=== PATIENT | female | born 1965 | race American Indian/Alaskan Native ===

== ENCOUNTER 2016-10-17 13:05 | Emergency (ER) | payer SELFPAY ==
[2016-10-17 14:24] LABS: Basophils % (Auto) 0.7 % (0.0-1.8); Eosinophils % (Auto) 0.7 % (0.0-4.3); Hematocrit 41.3 % (30.3-42.9); Hemoglobin 13.5 gm/dl (10.1-14.3); Mean Corpuscular HGB Conc 33 % (30-34); Mean Corpuscular Volume 79 fl (79-97); Platelet Count 285 K/mm3 (140-440); Red Blood Count 5.21 M/mm3 (3.65-5.03); Red Cell Distribution Width 15.7 % (13.2-15.2); White Blood Count 7.7 K/mm3 (4.5-11.0)
[2016-10-17 14:32] LABS: Anion Gap 17 mmol/L; BUN/Creatinine Ratio 15.71; Blood Urea Nitrogen 11 mg/dL (7-17); Calcium 9.7 mg/dL (8.4-10.2); Carbon Dioxide 30 mmol/L (22-30); Chloride 94.6 mmol/L (98-107); Glucose 104 mg/dL (65-100); Potassium 3.9 mmol/L (3.6-5.0); Sodium 138 mmol/L (137-145)
--- NOTE | 2016-10-17 14:38 | Emergency Department Report ---
Entered by DEVIN CRAMER, acting as scribe for BROCK DIAZ PA. Chief Complaint: Neuro Symptoms/Deficit Stated Complaint: TINGLING ON FACE, LEFT SIDE WEAKNESS Time Seen by Provider: 10/17/16 13:54 - HPI History of Present Illness: Pt c/o facial tingling/pressure and left-sided numbness that began this morning. Notes that 3 days ago her head felt tight with associated confusion and dizziness. Notes she had a similar episode yesterday at 17:00, but states the episode was worse 3 days ago. Denies headache. Denies any pain. Denies vision changes PMHx of HTN. Compliant with HCTZ 25 mg medication. - ROS Review of Systems: All systems are negative unless stated in the HPI above. - Exam Vital Signs: Vital Signs 10/17/16 13:14 Temperature 98.3 F Pulse Rate 85 Respiratory 16 Rate Blood Pressure 149/103 O2 Sat by Pulse 100 Oximetry Physical Exam: GENERAL: Patient is alert and oriented x 3. No apparent distress, normal gait, atraumatic. LUNGS: Symmetrical with respiration. No wheezing, rales or crackles, CTAB. HEART: Regular rate and rhythm with normal S1/S2 present. No murmurs, rubs, or gallops. NEUROLOGIC: No focal deficit., Cranial nerves II - XII are grossly intact. No loss of sensation. No facial droop. Finger to nose normal. No nystagmus. Heel to mccarthy normal. Negative Romberg. MSE screening note: Focused history and physical exam performed. Due to findings the following was ordered: ED Medical Decision Making - Medical Decision Making Patient seen by provider in triage area. Lab work will be done on patient and sent in. Patient will be seen by another provider in the main ED. ED Disposition for MSE Condition: Stable This documentation as recorded by the scribe,DEVIN CRAMER,accurately reflects the service I personally performed and the decisions made by me, BROCK DIAZ PA.
[2016-10-17 15:03] LABS: Mean Corpuscular Hemoglobin 26 pg (28-32)
--- NOTE | 2016-10-17 22:00 | Cat Scan Report ---
FINAL REPORT EXAM: CT HEAD/BRAIN WO CON HISTORY: head numbness COMPARISON: None available. TECHNIQUE: Axial images obtained skull base through vertex. FINDINGS: No acute intracranial hemorrhage, midline shift or pathologic extra axial fluid collection. Ventricles and cisterns are normal in size and configuration for the patient's age. Ceja-white differentiation preserved. Calvarium grossly intact. Minimal mucosal thickening the paranasal sinuses. Mastoid air cells are clear. Orbits are grossly unremarkable. Mild prominence of the pituitary gland. No bridget suprasellar extension on axial images. IMPRESSION: No grossly acute intracranial abnormality.
--- NOTE | 2016-10-17 23:02 | Emergency Department Report ---
ED Neuro Deficit HPI - General Chief Complaint: Neuro Symptoms/Deficit Stated Complaint: TINGLING ON FACE, LEFT SIDE WEAKNESS Time Seen by Provider: 10/17/16 13:56 Source: patient Mode of arrival: Ambulatory Limitations: No Limitations - History of Present Illness Initial Comments: 51-year-old female with history of hypertension and fibromyalgia presenting today because of pins and needle sensation to the left side of the face and scalp. Patient states his normal amount for the last 3 days. Came on suddenly while driving and initially lasted a short amount of time but has been coming on and off since. Is not having any associated focal weakness, difficulty walking, difficulty talking. Patient states that she had similar type of pins and needle sensation back in 2007 after having surgery and had a workup including MRI done which was negative. She also sometimes has the needle sensation to the fingertips on the left side, this usually involves all the fingertips and does not cause any symptoms proximally. - Related Data Allergies/Adverse Reactions: Allergies Allergy/AdvReac Type Severity Reaction Status Date / Time acetaminophen [From Percocet] AdvReac Hives Verified 10/17/16 13:24 oxycodone HCl [From Percocet] AdvReac Hives Verified 10/17/16 13:24 propofol [From Diprivan] AdvReac Unknown Verified 10/17/16 13:24 ED Review of Systems ROS: Stated complaint: TINGLING ON FACE, LEFT SIDE WEAKNESS Other details as noted in HPI Comment: All other systems reviewed and negative Constitutional: denies: chills, fever Respiratory: denies: cough Cardiovascular: denies: chest pain Gastrointestinal: denies: nausea, vomiting, diarrhea Genitourinary: denies: dysuria Skin: denies: rash Neurological: paresthesias. denies: weakness, numbness, confusion, abnormal gait, vertigo Psychiatric: denies: anxiety ED Past Medical Hx - Past Medical History Previous Medical History?: Yes Hx Hypertension: Yes Additional medical history: Fibromyalgia - Surgical History Past Surgical History?: Yes Hx Cholecystectomy: Yes Additional Surgical History: Hysterectomy - Social History Smoking Status: Never Smoker Substance Use Type: None ED Neuro Physical Exam - General Limitations: No Limitations General appearance: alert, in no apparent distress Suspected Stroke: No - Head Head exam: Present: atraumatic - Eye Eye exam: Present: normal appearance - ENT ENT exam: Present: normal exam - Neck Neck exam: Present: normal inspection. Absent: meningismus - Respiratory Respiratory exam: Present: normal lung sounds bilaterally, respiratory distress - Cardiovascular Cardiovascular Exam: Present: regular rate, normal rhythm - GI/Abdominal GI/Abdominal exam: Present: soft. Absent: distended, tenderness, guarding - Neurological Exam Neurological exam: Present: alert, oriented X3, CN II-XII intact, other ( sensation on exam of the face is bilaterally equal and normal, cranial nerves otherwise are intact, strength in all extremities is 5 out of 5, sensation is normal in all extremities). Absent: motor sensory deficit ED Course Vital Signs 10/17/16 10/17/16 13:14 22:28 Temperature 98.3 F Pulse Rate 85 87 Respiratory 16 16 Rate Blood Pressure 149/103 Blood Pressure 161/100 [Left] O2 Sat by Pulse 100 100 Oximetry - Lab Data Result diagrams: 10/17/16 14:06 10/17/16 14:06 Lab Results 10/17/16 10/17/16 Range/Units 14:06 14:06 WBC 7.7 (4.5-11.0) K/mm3 RBC 5.21 H (3.65-5.03) M/mm3 Hgb 13.5 (10.1-14.3) gm/dl Hct 41.3 (30.3-42.9) % MCV 79 (79-97) fl MCH 26 L (28-32) pg MCHC 33 (30-34) % RDW 15.7 H (13.2-15.2) % Plt Count 285 (140-440) K/mm3 Lymph % (Auto) 39.1 H (13.4-35.0) % [place] % (Auto) 8.4 H (0.0-7.3) % Eos % (Auto) 0.7 (0.0-4.3) % Baso % (Auto) 0.7 (0.0-1.8) % Lymph # 3.0 (1.2-5.4) K/mm3 [place] # 0.6 (0.0-0.8) K/mm3 Eos # 0.1 (0.0-0.4) K/mm3 Baso # 0.1 (0.0-0.1) K/mm3 Seg Neutrophils % 51.1 (40.0-70.0) % Seg Neutrophils # 3.9 (1.8-7.7) K/mm3 Sodium 138 (137-145) mmol/L Potassium 3.9 (3.6-5.0) mmol/L Chloride 94.6 L (98-107) mmol/L Carbon Dioxide 30 (22-30) mmol/L Anion Gap 17 mmol/L BUN 11 (7-17) mg/dL Creatinine 0.7 (0.7-1.2) mg/dL Estimated GFR > 60 ml/min BUN/Creatinine Ratio 15.71 % Glucose 104 H (65-100) mg/dL Calcium 9.7 (8.4-10.2) mg/dL - Medical Decision Making Symptoms are not consistent with TIA or CVA given the distribution of the paresthesias, more likely related to fibromyalgia but multiple sclerosis is a possibility. Labs and CT been preordered, labs do not show any significant abnormalities, CT of head is negative as read by radiology Given that the patient has no neurological deficits and the symptoms are not consistent with a stroke the patient is stable for outpatient workup of neurological symptoms. She has a primary doctor and appears reliable for follow -up. Critical care attestation.: If time is entered above; I have spent that time in minutes in the direct care of this critically ill patient, excluding procedure time. ED Disposition Clinical Impression: Facial paresthesia Hypertension Qualifiers: Hypertension type: essential hypertension Qualified Code(s): I10 - Essential ( primary) hypertension Disposition: DISCHARGED TO HOME OR SELFCARE Is pt being admited?: No Does the pt Need Aspirin: No Condition: Stable Instructions: Hypertension (ED) Additional Instructions: Please follow up with the primary care physician in the next 2-3 days and make an appointment with a neurologist in the next 1 week. Return to the ER if your symptoms worsen or you develop new symptoms especially numbness in the arms or legs, weakness in the specific arm or leg, difficulty walking or talking. Referrals: PRIMARY CARE, [Primary Care Provider] - 3-5 Days [facility] [Provider Group] - 3-5 Days Time of Disposition: 23:11
[2016-10-17 23:27] VITALS: BP 142/90
== END 2016-10-17 23:27 | disposition home or self-care (01) ==
LOC: ED 13:05
DX: R20.2 Paresthesia of skin (principal); I10 Essential (primary) hypertension; M79.7 Fibromyalgia
CPT/HCPCS: 36415; 70450; 80048; 85025; 93005; 93010